=== PATIENT | male | born 1960 | race Hispanic/Latino ===

== ENCOUNTER 2022-04-03 11:01 | Inpatient (IN) | payer OTHER ==
[2022-04-03] VITALS (29 sets, daily range): BP systolic 102–145; BP diastolic 61–93
[~2022-04-03] VITALS: Ht 177.8 cm; Wt 87.5 kg
[2022-04-03] MEDS ORDERED: ONDANSETRON 4MG INJ IVP ONE (11:30)
[2022-04-03] MEDS ORDERED: KETOROLAC 15MG/ML VIAL (15MG/ML) IV ONE (11:30)
[2022-04-03] MEDS ORDERED: 0.9%NACL 1000ML 1,000 ML IV ONE (11:30)
[2022-04-03] MEDS ORDERED: PROCHLORPERAZINE 10MG/2ML INJ IV ONE (11:30)
[2022-04-03] MEDS ORDERED: DiphenhydrAMINE HCL 50 MG/ML VIAL IV ONE (11:30)
[2022-04-03 11:49] LABS: BASOPHILS % (AUTO) 0.2 % (0.0-5.0); EOSINOPHILS % (AUTO) 0.7 % (0.0-8.0); HEMATOCRIT 45.9 % (42-54); MEAN CORPUSCULAR HEMOGLOBIN 29.4 pg (27.0-33.0); MEAN CORPUSCULAR HGB CONC 34.4 g/dL (32.0-36.0); MEAN CORPUSCULAR VOLUME 85.5 fL (79-99); MONOCYTES % (AUTO) 6.9 % (3.0-13.0); NEUTROPHILS % (AUTO) 73.9 % (40.0-77.0); PLATELET COUNT (AUTO) 208 K/uL (130-400); RED BLOOD CELL COUNT(AUTO) 5.37 MIL/uL (4.50-6.20); RED CELL DISTRIBUTION WIDTH 12.7 % (11.0-15.5); WHITE BLOOD COUNT (AUTO) 6.1 K/uL (4.8-10.8)
[2022-04-03 11:54] LABS: CREATININE 0.9 mg/dL (0.5-1.5)
[2022-04-03 12:01] LABS: ALBUMIN 3.9 g/dL (3.5-5.0)
[2022-04-03] MEDS ORDERED: LIDOCAINE PF 100MG/5ML (2%) SYRINGE 5ML ONE (13:45)
[2022-04-03] MEDS ORDERED: DEXAMETHASONE SOD PHOSPHATE 10MG/ML 1ML VIAL ONE (13:45)
[2022-04-03] MEDS ORDERED: SUCCINYLCHOLINE CHLORIDE 20 MG/ML 10 ML VIAL ONE (13:45)
[2022-04-03] MEDS ORDERED: PROPOFOL 10 MG/ML 20ML VIAL IV ONE (13:46)
[2022-04-03] MEDS ORDERED: FENTANYL CITRATE PF 50 MCG/1 ML 2ML VIAL ONE ×2 (13:46→15:29)
[2022-04-03] MEDS ORDERED: ONDANSETRON 4MG INJ ONE (13:46)
[2022-04-03] MEDS ORDERED: GLYCOPYRROLATE 1 MG/5 ML SYRINGE ONE (13:46)
[2022-04-03] MEDS ORDERED: MIDAZOLAM HCL 1 MG/ML 2ML VIAL ONE (13:46)
[2022-04-03] MEDS ORDERED: ROCURONIUM 10MG/1ML SYR 10 MG/ML ML ONE ×2 (13:46→15:14)
[2022-04-03] MEDS ORDERED: NEOSTIGMINE 5MG/5ML SYR IV ONE (13:46)
[2022-04-03 13:48] LABS: INR 0.99 (0.85-1.15); PROTHROMBIN TIME 10.8 SEC (9.6-11.6)
[2022-04-03 13:50] LABS: PARTIAL THROMBOPLASTIN TIME 23.4 SEC (26.3-35.5)
[2022-04-03] MEDS ORDERED: CEFAZOLIN SODIUM 1 GM VIAL IVP PRN (14:00)
[2022-04-03] MEDS ORDERED: BUPIVACAINE/EPI/PF 0.5% 30ML VIAL IJ ONE ×2 (14:19→14:37)
[2022-04-03] MEDS ORDERED: MANNITOL 20% 500ML BAG 500 ML IV ONE (14:19)
[2022-04-03] MEDS ORDERED: CEFAZOLIN SODIUM 1 GM VIAL ONE ×2 (14:19→14:56)
[2022-04-03] MEDS ORDERED: THROMBIN-JMI 20000 UNIT KIT TP ONE (14:20)
[2022-04-03] MEDS ORDERED: 0.9%NACL 1000ML 1,000 ML IV SCH (14:30)
[2022-04-03] MEDS ORDERED: ACETAMINOPHEN 325 MG TAB PO PRN ×2 (14:30)
[2022-04-03] MEDS ORDERED: ONDANSETRON 4MG INJ IV PRN (14:30)
[2022-04-03] MEDS: LACTATED RINGERS 1000ML 1,000 ML IV SCH (16:54)
[2022-04-03] MEDS: FAMOTIDINE 20MG VIAL IV SCH (21:02)
[2022-04-04] VITALS (48 sets, daily range): BP systolic 98–154; BP diastolic 45–117
[2022-04-04] MEDS: LACTATED RINGERS 1000ML 1,000 ML IV SCH ×2 (05:40→19:40)
[2022-04-04] MEDS: FAMOTIDINE 20MG VIAL IV SCH ×2 (09:00→21:25)
[2022-04-04] MEDS ORDERED: IODIXANOL 320 MG/ML 100 ML VIAL ONE (09:13)
[2022-04-04] MEDS ORDERED: LIDOCAINE HCL-MPF 2% 10ML AMP IJ ONE ×2 (09:13→09:18)
[2022-04-04] MEDS ORDERED: IOHEXOL-350 75 ML VIAL IV ONE (09:25)
[2022-04-04] MEDS ORDERED: 0.9%NACL 1000ML 1,000 ML IV SCH (10:00)
[2022-04-04] MEDS ORDERED: HYDRALAZINE 20MG/ML VIAL IV PRN (10:00)
[2022-04-05 04:39] VITALS: BP 125/74
[2022-04-05 08:00] VITALS: BP 129/71
[2022-04-05] MEDS: LACTATED RINGERS 1000ML 1,000 ML IV SCH (09:36)
[2022-04-05] MEDS: FAMOTIDINE 20MG VIAL IV SCH (09:36)
[2022-04-05 12:00] VITALS: BP 125/82
[2022-04-05 16:00] VITALS: BP 129/83
== END 2022-04-05 18:55 | disposition home or self-care (01) | DRG 25 ==
LOC: EDH 11:01 → EDHIP 11:02 → EDH 14:19 → 2BH 16:29 → 4BH 04-04 12:41
PROVIDERS: ADMIT Internal Medicine; ATTEND Internal Medicine
PROC: 00940ZZ Drainage of Intracranial Subdural Space, Open Approach (ICD-10-PCS; principal; 2022-04-03 14:20)
PROC: B41F1ZZ Fluoroscopy of Right Lower Extremity Arteries using Low Osmolar Contrast (ICD-10-PCS; 2022-04-04)
DX: I62.02 Nontraumatic subacute subdural hemorrhage (principal); G93.6 Cerebral edema; Z20.822 Contact with and (suspected) exposure to COVID-19; E11.9 Type 2 diabetes mellitus without complications; G43.909 Migraine, unspecified, not intractable, without status migrainosus
CPT/HCPCS: 36223; 36226; 36415; 70450; 80053; 82948; 84484; 85025; 85610; 85730; 86850; 86900; 86901; 87635; 92522; 92610; 93005; 99291; C1894; C9803; G0378; J0330; J0360; J0690; J0780; J1100; J1200; J1644; J1885; J2001; J2250; J2405; J2704; J2710; J3010; J3490; J7030; J7120; Q9967

== ENCOUNTER 2022-04-15 16:46 | Inpatient (IN) | payer OTHER ==
[2022-04-15] VITALS (10 sets, daily range): BP systolic 108–149; BP diastolic 66–104
[~2022-04-15] VITALS: Ht 177.8 cm; Wt 86.0 kg
[2022-04-15 17:48] LABS: BASOPHILS % (AUTO) 0.3 % (0.0-5.0); EOSINOPHILS % (AUTO) 0.5 % (0.0-8.0); HEMATOCRIT 42.9 % (42-54); LYMPHOCYTES % (AUTO) 15.9 % (21.0-51.0); MEAN CORPUSCULAR HEMOGLOBIN 28.9 pg (27.0-33.0); MEAN CORPUSCULAR HGB CONC 33.8 g/dL (32.0-36.0); MEAN CORPUSCULAR VOLUME 85.6 fL (79-99); MONOCYTES % (AUTO) 4.2 % (3.0-13.0); NEUTROPHILS % (AUTO) 78.8 % (40.0-77.0); PLATELET COUNT (AUTO) 229 K/uL (130-400); RED BLOOD CELL COUNT(AUTO) 5.01 MIL/uL (4.50-6.20); RED CELL DISTRIBUTION WIDTH 12.6 % (11.0-15.5)
[2022-04-15 18:04] LABS: CARBON DIOXIDE 31 mmol/L (21-32); CHLORIDE 101 mmol/L (101-111); CREATININE 0.9 mg/dL (0.5-1.5); GLOMERULAR FILTR. RATE CALC 91 mL/min (>60); GLUCOSE,RANDOM 175 mg/dL (70-105); POTASSIUM 4.1 mmol/L (3.5-5.1); SODIUM SERUM 137 mmol/L (136-145); UREA NITROGEN, BLOOD 17 mg/dL (7-18)
[2022-04-15 18:08] LABS: ALANINE AMINOTRANSFERASE 41 U/L (12-78); ALBUMIN 3.9 g/dL (3.5-5.0); ALCOHOL, BLOOD < 3 mg/dL (0-10); ASPARTATE AMINOTRANSFERASE 12 U/L (10-37); TOTAL PROTEIN, SERUM 7.5 g/dL (6.0-8.3)
[2022-04-15] MEDS ORDERED: DEXAMETHASONE SOD PHOSPHATE 10MG/ML 1ML VIAL ONE (18:53)
[2022-04-15] MEDS ORDERED: DEXAMETHASONE SOD PHOSPHATE 4 MG/ML 1ML VIAL IVP ONE (19:00)
[2022-04-15] MEDS ORDERED: MANNITOL 25% 50ML VIAL IV SCH (19:00)
[2022-04-15 19:29] LABS: APPEARANCE,URINE CLEAR (CLEAR); BILIRUBIN,URINE NEGATIVE (NEGATIVE); COLOR,URINE LIGHT-YELLOW (YELLOW); GLUCOSE, URINE (UA) 150 mg/dL (NEGATIVE); KETONES,URINE NEGATIVE (NEGATIVE); LEUKOCYTE ESTERASE ,URINE NEGATIVE Leu/uL (NEGATIVE); NITRATE,URINE NEGATIVE (NEGATIVE); OCCULT BLOOD,URINE NEGATIVE (NEGATIVE); PH,URINE 5.5 (5.0-8.0); PROTEIN,URINE 10 mg/dL (NEGATIVE); UROBILINOGEN,URINE 0.2 mg/dL (0.2-1.0)
[2022-04-15] MEDS ORDERED: MAGNESIUM 2GM PREMIX 50ML 50 ML IV SCH (19:30)
[2022-04-15] MEDS ORDERED: GLUCAGON 1MG KIT 1 MG ML IM PRN (20:00)
[2022-04-15] MEDS ORDERED: ONDANSETRON 4MG INJ IV PRN (20:00)
[2022-04-15] MEDS ORDERED: DEXTROSE 50%-WATER 50 ML DISP.SYRIN IV PRN (20:00)
[2022-04-15] MEDS ORDERED: ACETAMINOPHEN 650 MG SUPPOSITORY RC PRN ×2 (20:00)
[2022-04-15 20:04] LABS: MUCUS,URINE RARE LPF (None Seen); RBC,URINE 0-1 /HPF (0-1); WBC,URINE 0-1 /HPF (0-1)
[2022-04-15 20:05] LABS: HEMOGLOBIN A1C 8.9 % (4.0-6.0)
[2022-04-15 20:11] LABS: INR 0.93 (0.85-1.15)
[2022-04-15 20:13] LABS: PARTIAL THROMBOPLASTIN TIME 23.1 SEC (26.3-35.5)
[2022-04-15 20:22] LABS: ACETAMINOPHEN < 1 mcg/mL (10-29)
[2022-04-15] MEDS: 0.9%NACL 1000ML 1,000 ML IV SCH (21:00)
[2022-04-15] MEDS ORDERED: PHARMACY COMMUNICATION MISC SCH (21:00)
[2022-04-15] MEDS: FAMOTIDINE 20MG VIAL IV SCH (21:00)
[2022-04-15] MEDS: MANNITOL 25% 50ML VIAL IV SCH (21:02)
[2022-04-15 22:07] LABS: HEMATOCRIT 42.1 % (42-54)
[2022-04-16] VITALS (35 sets, daily range): BP systolic 100–145; BP diastolic 58–92
[2022-04-16 00:54] LABS: AMPHET/METH SCREEN,URINE NEGATIVE (NEGATIVE); BARBITURATE SCREEN, URINE NEGATIVE (NEGATIVE); BENZODIAZEPINES SCREEN,URINE NEGATIVE (NEGATIVE); CANNABINOID SCREEN,URINE NEGATIVE (NEGATIVE); COCAINE SCREEN,URINE NEGATIVE (NEGATIVE)
[2022-04-16 00:56] LABS: PHENCYCLIDINE SCREEN,URINE NEGATIVE (NEGATIVE)
[2022-04-16] MEDS: MANNITOL 25% 50ML VIAL IV SCH ×2 (03:21→09:00)
[2022-04-16 03:49] LABS: BASOPHILS % (AUTO) 0.2 % (0.0-5.0); HEMATOCRIT 43.4 % (42-54); LYMPHOCYTES % (AUTO) 12.9 % (21.0-51.0); MEAN CORPUSCULAR HEMOGLOBIN 28.8 pg (27.0-33.0); MEAN CORPUSCULAR HGB CONC 33.9 g/dL (32.0-36.0); MEAN CORPUSCULAR VOLUME 85.1 fL (79-99); MONOCYTES % (AUTO) 1.5 % (3.0-13.0); NEUTROPHILS % (AUTO) 85.1 % (40.0-77.0); PLATELET COUNT (AUTO) 233 K/uL (130-400); RED CELL DISTRIBUTION WIDTH 12.6 % (11.0-15.5); WHITE BLOOD COUNT (AUTO) 6.6 K/uL (4.8-10.8)
[2022-04-16 04:04] LABS: INR 0.94 (0.85-1.15); PROTHROMBIN TIME 10.3 SEC (9.6-11.6)
[2022-04-16 04:05] LABS: ALBUMIN 3.6 g/dL (3.5-5.0); CREATININE 0.9 mg/dL (0.5-1.5); MAGNESIUM 1.8 mg/dL (1.80-2.40); TOTAL PROTEIN, SERUM 7.3 g/dL (6.0-8.3)
[2022-04-16] MEDS: INSULIN HUMULIN R 100 UNIT/ML 3ML SQ SCH ×5 (05:54→22:54)
[2022-04-16] MEDS ORDERED: FENTANYL CITRATE PF 50 MCG/1 ML 5ML AMP IV ONE (06:42)
[2022-04-16] MEDS ORDERED: PROPOFOL 10 MG/ML 20ML VIAL IV ONE ×2 (06:42→10:00)
[2022-04-16] MEDS ORDERED: ROCURONIUM 10MG/1ML SYR 10 MG/ML ML ONE (06:42)
[2022-04-16] MEDS ORDERED: THROMBIN-JMI 20000 UNIT KIT TP ONE (07:41)
[2022-04-16] MEDS ORDERED: CEFAZOLIN SODIUM 1 GM VIAL ONE (07:41)
[2022-04-16] MEDS ORDERED: BACITRACIN 28.4 GM OINT TP ONE (07:41)
[2022-04-16] MEDS ORDERED: VANCOMYCIN 1G VIAL ONE ×2 (07:42→08:13)
[2022-04-16] MEDS ORDERED: TOBRAMYCIN SULFATE POWDER 1.2 GM/VIAL ONE (07:45)
[2022-04-16] MEDS: LIDOCAINE 1%-EPI 1:100,000 20 ML VIAL IJ SCH ×2 (08:00→09:30)
[2022-04-16] MEDS ORDERED: TRANEXAMIC ACID 1000MG/10ML ONE (08:11)
[2022-04-16] MEDS ORDERED: MANNITOL 20% 500ML BAG 500 ML IV ONE (08:47)
[2022-04-16] MEDS ORDERED: EPHEDRINE SULFATE 50 MG/ML AMPULE ONE (09:17)
[2022-04-16] MEDS ORDERED: THROMBIN-JMI 5000 UNIT/VIAL TP ONE (09:30)
[2022-04-16] MEDS ORDERED: BUPIVACAINE/PF 0.25% 30ML VIAL IJ ONE (09:51)
[2022-04-16] MEDS ORDERED: GLYCOPYRROLATE 1 MG/5 ML SYRINGE ONE (09:52)
[2022-04-16] MEDS ORDERED: NEOSTIGMINE 5MG/5ML SYR IV ONE (09:52)
[2022-04-16] MEDS ORDERED: ONDANSETRON 4MG INJ ONE (10:00)
[2022-04-16] MEDS ORDERED: FENTANYL CITRATE PF 50 MCG/1 ML 2ML VIAL ONE (10:01)
[2022-04-16] MEDS: FAMOTIDINE 20MG VIAL IV SCH ×2 (13:24→20:08)
[2022-04-16] MEDS: 0.9%NACL 1000ML 1,000 ML IV SCH ×2 (13:24→22:48)
[2022-04-16] MEDS ORDERED: ONDANSETRON 4MG INJ IVP PRN (17:30)
[2022-04-16] MEDS: ACETAMINOPHEN WITH CODEINE 1 TAB TAB PO PRN ×2 (18:33→22:48)
[2022-04-16] MEDS: VANCOMYCIN 1G/250ML KIT 250 ML IV SCH (21:36)
[2022-04-16] MEDS ORDERED: VANCOMYCIN 1G VIAL IVPB SCH (22:00)
[2022-04-17] VITALS (38 sets, daily range): BP systolic 91–129; BP diastolic 56–90
[2022-04-17 04:07] LABS: BASOPHILS % (AUTO) 0.3 % (0.0-5.0); HEMATOCRIT 39.4 % (42-54); LYMPHOCYTES % (AUTO) 21.1 % (21.0-51.0); MEAN CORPUSCULAR HEMOGLOBIN 29.2 pg (27.0-33.0); MEAN CORPUSCULAR HGB CONC 33.5 g/dL (32.0-36.0); MEAN CORPUSCULAR VOLUME 87.2 fL (79-99); MONOCYTES % (AUTO) 7.8 % (3.0-13.0); NEUTROPHILS % (AUTO) 69.4 % (40.0-77.0); PLATELET COUNT (AUTO) 203 K/uL (130-400); RED BLOOD CELL COUNT(AUTO) 4.52 MIL/uL (4.50-6.20); RED CELL DISTRIBUTION WIDTH 12.8 % (11.0-15.5); WHITE BLOOD COUNT (AUTO) 7.3 K/uL (4.8-10.8)
[2022-04-17 04:34] LABS: CREATININE 0.8 mg/dL (0.5-1.5); POTASSIUM 3.8 mmol/L (3.5-5.1)
[2022-04-17] MEDS: INSULIN HUMULIN R 100 UNIT/ML 3ML SQ SCH ×4 (05:44→23:11)
[2022-04-17] MEDS: ACETAMINOPHEN WITH CODEINE 1 TAB TAB PO PRN ×3 (05:56→20:11)
[2022-04-17] MEDS: FAMOTIDINE 20MG VIAL IV SCH ×2 (08:33→20:11)
[2022-04-17] MEDS ORDERED: METF-446 PO (08:56)
[2022-04-17] MEDS ORDERED: GLIP10TA9 PO (08:56)
[2022-04-17] MEDS: VANCOMYCIN 1G/250ML KIT 250 ML IV SCH (09:03)
[2022-04-17] MEDS: 0.9%NACL 1000ML 1,000 ML IV SCH (12:00)
[2022-04-18] VITALS (28 sets, daily range): BP systolic 100–145; BP diastolic 61–98
[2022-04-18] MEDS: ACETAMINOPHEN WITH CODEINE 1 TAB TAB PO PRN ×3 (04:40→17:32)
[2022-04-18] MEDS: 0.9%NACL 1000ML 1,000 ML IV SCH ×2 (04:40→14:40)
[2022-04-18] MEDS: INSULIN HUMULIN R 100 UNIT/ML 3ML SQ SCH ×3 (05:55→18:00)
[2022-04-18] MEDS: FAMOTIDINE 20MG VIAL IV SCH ×2 (10:02→20:31)
[2022-04-18] MEDS ORDERED: BACITRACIN 1 EACH PACKET TP ONE (13:29)
[2022-04-18] MEDS ORDERED: PHARMACY COMMUNICATION MISC SCH (17:00)
[2022-04-18] MEDS ORDERED: MANNITOL 25% 50ML VIAL IV ONE (17:30)
[2022-04-18] MEDS: MANNITOL 20% 500ML BAG 500 ML IV ONE ×2 (18:10→18:33)
[2022-04-18] MEDS ORDERED: LEVETIRACETAM 500 MG/5 ML SD VIAL IV STA (18:57)
[2022-04-18] MEDS ORDERED: LEVETIRACETAM 500 MG in 0.9%NACL 100ML 100 ML IV SCH (19:30)
[2022-04-18] MEDS ORDERED: COMPOUND IV MISC 1 EACH IVSOLN MISC PRN (19:30)
[2022-04-19] MEDS ORDERED: MUPIROCIN OINTMENT 22 GM TUBE TP SCH (09:00)
== END 2022-04-18 23:14 | disposition short-term general hospital (02) | DRG 25 ==
LOC: EDH 16:46 → EDHIP 16:47 → 2BH 20:17
PROVIDERS: ADMIT Internal Medicine; ATTEND Internal Medicine
PROC: 00940ZZ Drainage of Intracranial Subdural Space, Open Approach (ICD-10-PCS; principal; 2022-04-18)
DX: I62.01 Nontraumatic acute subdural hemorrhage (principal); G93.6 Cerebral edema; Z20.822 Contact with and (suspected) exposure to COVID-19; E83.42 Hypomagnesemia; G93.2 Benign intracranial hypertension; E11.9 Type 2 diabetes mellitus without complications
CPT/HCPCS: 36415; 70450; 71045; 80048; 80053; 80305; 81001; 82948; 83036; 83605; 83735; 85014; 85018; 85025; 85378; 85610; 85730; 86850; 86900; 86901; 87635; 93005; 97039; 99291; 99292; G0378; J0690; J1100; J1953; J2150; J2405; J2704; J2710; J3010; J3260; J3370; J3475; J3490; J7030; J7040